=== PATIENT | female | born 1940 | race Caucasian/White ===

== ENCOUNTER 2017-02-19 17:24 | Emergency (ER) | payer MEDICARE, OTHER ==
[~2017-02-19] VITALS: Ht 177.8 cm; Wt 63.5 kg
[2017-02-20 00:27] LABS: Basophils # (auto) 0 uL; Basophils % (auto) 0.2 % (0.0-2.0); Eosinophils # (auto) 0 uL; Hematocrit 37.3 % (36.0-46.0); Hemoglobin 12.3 g/dL (12.2-16.2); Lymphocytes # (auto) 1.1 uL; Lymphocytes % (auto) 13.9 % (10.0-50.0); Mean Corpuscular Hemoglobin 30.5 pg (28.0-32.0); Mean Corpuscular Hgb Conc. 32.9 g/dL (32.0-36.0); Mean Corpuscular Volume 92.6 fL (80.0-100.0); Monocytes # (auto) 0.7 uL; Monocytes % (auto) 8.5 % (0.0-12.0); Neutrophils # (auto) 6.1 uL; Neutrophils % (auto) 77.4 % (37.0-80.0); Platelet Count (auto) 184 10^3/uL (140-450); Red Cell Distribution Width 13.6 % (11.8-14.3); White Blood Cell 7.8 10^3/uL (4.4-10.8)
[2017-02-20 00:44] LABS: Amylase 40 U/L (25-115); Anion Gap 12 (5-15); Aspartate Aminotransferase 47 U/L (15-37); BUN/Creatinine Ratio 38.9; Blood Urea Nitrogen 28 mg/dL (7-18); Calcium 8.7 mg/dL (8.5-10.1); Carbon Dioxide 23 mmol/L (21-32); Chloride 107 mmol/L (98-107); GFR African American 101 mL/min; GFR Non-African American 84 mL/min; Glucose 67 mg/dL (74-106); INR 1.05 (0.9-1.15); Magnesium 2.1 mg/dL (1.6-2.6); Partial Thromboplastin Time 26.4 sec (22.64-33.71); Potassium 3.6 mmol/L (3.5-5.1); Prothrombin Time 11.4 sec (9.37-12.3); Sodium 142 mmol/L (136-145)
[2017-02-20 00:49] LABS: Alkaline Phosphatase 65 U/L (45-117); Bilirubin, Total 0.8 mg/dL (0.2-1.0); Total Protein 6.6 g/dL (6.4-8.2)
[2017-02-20 01:04] LABS: B-Type Natriuretic Peptide 80.42 pg/mL (0-100)
[2017-02-20] MEDS ORDERED: SODIUM CHLORIDE 0.9% 1,000 ML IV ONE ×2 (01:15→05:35)
[2017-02-20] MEDS ORDERED: DEXTROSE 50% SYRINGE 50 ML IV ONE (05:07)
[2017-02-20] MEDS ORDERED: DEXTROSE (50%) 50ML SYRG IV ONE (05:30)
[2017-02-20 07:51] VITALS: BP 115/59
== END 2017-02-20 09:45 | disposition home or self-care (01) ==
LOC: ER 17:45
DX: S39.012A Strain of muscle, fascia and tendon of lower back, initial encounter (principal); S80.02XA Contusion of left knee, initial encounter; S80.01XA Contusion of right knee, initial encounter; E16.2 Hypoglycemia, unspecified; E86.0 Dehydration; W19.XXXA Unspecified fall, initial encounter; Y93.89 Activity, other specified; Y92.89 Other specified places as the place of occurrence of the external cause; Y99.8 Other external cause status; Z88.0 Allergy status to penicillin
CPT/HCPCS: 36415; 70450; 71010; 72131; 73562; 80053; 82150; 82962; 83605; 83690; 83735; 83880; 84484; 85025; 85379; 85610; 85730; 94761; 96361; 96374; 99285; J7030; J7042